=== PATIENT | male | born 1960 | race African-American/Black ===

== ENCOUNTER 2022-01-02 07:29 | Inpatient (IN) | payer OTHER ==
[~2022-01-02] VITALS: Ht 177.8 cm; Wt 113.4 kg
[~2022-01-02 07:29] MED LIST: AMLODIPINE BESY10 MG; ATORVASTATIN CA10 MG; BACTRIM DS TAB1 EACH PO; CYCLOBENZAPRINE10 MG; FAMOTIDINE20 MG; GABAPENTIN600 MG; HYDRODIURIL12.5 MG; INTEGRA PLUS C1 EACH PO; LISINOPRIL5 MG; METFORMIN HCL500 M4; METFORMIN PO; OXYC1TAB9 PO; PANTOPRAZOLE SO40 MG; ST. JOSEPH ASPI81 M2; TRAMADOL HCL50 MG; XARELTO10 MG PO; [UNRECOGNIZED DRUG - OTHER]
[2022-01-10] MEDS ORDERED: INTEGRA PLUS C1 EACH PO (11:56)
[2022-01-10] MEDS ORDERED: TRAMADOL HCL50 MG PO (11:56)
[2022-01-10] MEDS ORDERED: XARELTO10 MG PO (11:56)
== END 2022-01-10 13:12 | disposition home or self-care (01) | DRG 863 ==
LOC: ER 07:29 → SEC-K 13:43 → SURG 13:43 → SURH 01-07 15:32
PROVIDERS: ADMIT Orthopaedic Surgery Sports Medicine; ATTEND Orthopaedic Surgery Sports Medicine
PROC: B54CZZZ Ultrasonography of Left Lower Extremity Veins (ICD-10-PCS; principal; 2022-01-04)
PROC: B54DZZZ Ultrasonography of Bilateral Lower Extremity Veins (ICD-10-PCS; 2022-01-07)
PROC: 02HV33Z Insertion of Infusion Device into Superior Vena Cava, Percutaneous Approach (ICD-10-PCS; 2022-01-07)
DX: T81.41XA Infection following a procedure, superficial incisional surgical site, initial encounter (principal); L03.116 Cellulitis of left lower limb; I10 Essential (primary) hypertension; E78.5 Hyperlipidemia, unspecified; E11.9 Type 2 diabetes mellitus without complications; K21.9 Gastro-esophageal reflux disease without esophagitis; Z20.822 Contact with and (suspected) exposure to COVID-19; B96.89 Other specified bacterial agents as the cause of diseases classified elsewhere; Z96.652 Presence of left artificial knee joint

== ENCOUNTER 2022-01-20 18:58 | Inpatient (IN) | payer OTHER ==
[~2022-01-20] VITALS: Ht 180.3 cm; Wt 90.7 kg
[~2022-01-20 18:58] MED LIST changes: +TRAMADOL HCL50 MG PO
[2022-01-21] MEDS ORDERED: FAMOTIDINE20 MG (11:30)
[2022-01-29] MEDS ORDERED: PERCOCET 5-3251 EACH PO (07:29)
[2022-01-29] MEDS ORDERED: XARELTO10 MG PO (07:29)
== END 2022-01-29 16:58 | disposition home or self-care (01) | DRG 487 ==
LOC: ER 18:58 → SURG 01-21 09:21 → SEC-K 01-21 09:21 → SURG 01-21 11:00
PROVIDERS: ADMIT Orthopaedic Surgery Sports Medicine; ATTEND Orthopaedic Surgery Sports Medicine
PROC: 0SBD0ZZ Excision of Left Knee Joint, Open Approach (ICD-10-PCS; principal; 2022-01-24)
PROC: 0SW Lower Joints, Revision (ICD-10-PCS; 2022-01-24)
PROC: 02HV33Z Insertion of Infusion Device into Superior Vena Cava, Percutaneous Approach (ICD-10-PCS; 2022-01-24)
DX: T84.54XA Infection and inflammatory reaction due to internal left knee prosthesis, initial encounter (principal); Z96.652 Presence of left artificial knee joint; E11.9 Type 2 diabetes mellitus without complications; Z20.822 Contact with and (suspected) exposure to COVID-19